=== PATIENT | male | born 1955 | race African-American/Black ===

== ENCOUNTER → 2019-10-22 | Outpatient (CLI) | payer MEDICAID ==
[~2019-10-22] MED LIST: ASPI-1497 MT; LISI-604 PO; OMEP40CA12 PO; QUET200T MT; SIMV-46 PO
== END | disposition home or self-care (01) ==
LOC: LAB 09:33
PROVIDERS: ATTEND Neurological Surgery
DX: Z01.818 Encounter for other preprocedural examination (principal); Z11.59 Encounter for screening for other viral diseases
CPT/HCPCS: C9803; U0003

== ENCOUNTER 2019-10-25 06:53 | Inpatient (IN) | payer MEDICAID ==
[2019-10-25] VITALS (55 sets, daily range): BP systolic 82–158; BP diastolic 39–85
[~2019-10-25] VITALS: Ht 165.1 cm; Wt 106.1 kg
[~2019-10-25 06:53] MED LIST changes: +LACTATED RINGERS 1,000 ML IV SCH
[2019-10-25] MEDS ORDERED: HYDRALAZINE 20MG/ML VIAL IV PRN (09:15)
[2019-10-25] MEDS ORDERED: MORPHINE SULFATE 4 MG/ML CPJ (NOT FOR IM USE) IV PRN (09:15)
[2019-10-25] MEDS ORDERED: LIDOCAINE HCL/EPINEPHRINE 1%-EPI 1:100,000 20 ML VIAL ONE (09:40)
[2019-10-25] MEDS ORDERED: THROMBIN (BOVINE) 5000 UNITS/VIAL TOP ONE (09:40)
[2019-10-25] MEDS ORDERED: BACITRACIN 50,000 UNITS/VIAL ONE (09:41)
[2019-10-25] MEDS ORDERED: ROCURONIUM BROMIDE 10MG/ML VIAL 5ML IV ONE (10:08)
[2019-10-25] MEDS ORDERED: GLYCOPYRROLATE 0.2 MG/ML 2ML VIAL ONE (10:12)
[2019-10-25] MEDS ORDERED: HYDROMORPHONE HCL/PF 2MG/ML (OR) ONE (10:26)
[2019-10-25] MEDS ORDERED: LABETALOL HCL 5MG/ML VIAL 20ML IV ONE (12:07)
[2019-10-25] MEDS ORDERED: NALOXONE INJ IV PRN (12:30)
[2019-10-25] MEDS: HYDROMORPHONE PCA 10MG/50ML IV PRN (13:07)
[2019-10-25] MEDS: DEXT 5%/LACTATED RINGERS 1,000 ML IV SCH (13:08)
[2019-10-25] MEDS: CEFAZOLIN 1000MG PREMIX 50 ML IV SCH ×2 (13:49→21:33)
[2019-10-25] MEDS ORDERED: CEFAZOLIN SODIUM 1000MG/VIAL IV SCH (14:00)
[2019-10-25] MEDS: NICARDIPINE 100 MG in SODIUM CHLORIDE 0.9% 60 ML IV PRN (15:52)
[2019-10-25] MEDS: DIPHENHYDRAMINE INJ IV PRN ×2 (17:01→21:33)
[2019-10-25] MEDS: ONDANSETRON INJ IV PRN (20:10)
[2019-10-25] MEDS: QUETIAPINE FUMARATE 50MG TABLET PO SCH (21:33)
[2019-10-26] VITALS (80 sets, daily range): BP systolic 72–165; BP diastolic -24–128
[2019-10-26] MEDS: DEXT 5%/LACTATED RINGERS 1,000 ML IV SCH ×2 (01:38→15:31)
[2019-10-26] MEDS: ONDANSETRON INJ IV PRN (01:38)
[2019-10-26] MEDS: DIPHENHYDRAMINE INJ IV PRN ×3 (03:03→21:18)
[2019-10-26] MEDS: HYDROMORPHONE PCA 10MG/50ML IV PRN ×2 (03:44→17:22)
[2019-10-26] MEDS: NICARDIPINE 100 MG in SODIUM CHLORIDE 0.9% 60 ML IV PRN (05:00)
[2019-10-26 05:24] LABS: BASOPHILS % 0.3 % (0.0-2.0); EOSINOPHILS % 0.2 % (0.0-5.0); HEMATOCRIT. 28.1 % (42.0-52.0); HEMOGLOBIN. 9.8 g/dL (14.0-18.0); LYMPHOCYTES % 21.8 % (20.0-50.0); MEAN CORPUSCULAR HEMOGLOBIN 30.5 pg (28.0-32.0); MEAN CORPUSCULAR VOLUME 87.7 fL (80.0-94.0); MEAN PLATELET VOLUME 9.1 fl (7.4-10.4); MONOCYTES % 7.3 % (2.0-8.0); NEUTROPHILS % 70.4 % (40.0-76.0); PLATELET 171 x1000/uL (130-400); RED BLOOD CELL COUNT 3.21 mill/uL (4.7-6.1); RED CELL DISTRIBUTION WIDTH 14.5 % (11.6-14.6)
[2019-10-26 05:30] LABS: CHLORIDE 109 mEq/L (98-107)
[2019-10-26] MEDS: CEFAZOLIN 1000MG PREMIX 50 ML IV SCH ×2 (07:04→15:31)
[2019-10-26] MEDS: OXYCODONE HCL/ACETAMINOPHEN 5/325MG TABLET PO PRN (08:30)
[2019-10-26] MEDS: QUETIAPINE FUMARATE 50MG TABLET PO SCH (21:01)
[2019-10-27] VITALS: BP 137/56
[2019-10-27 04:00] VITALS: BP 137/57
[2019-10-27] MEDS: DIPHENHYDRAMINE INJ IV PRN ×2 (04:36→20:33)
[2019-10-27 06:55] LABS: CHLORIDE 110 mEq/L (98-107)
[2019-10-27 07:34] LABS: BASOPHILS % 0.6 % (0.0-2.0); EOSINOPHILS % 0.7 % (0.0-5.0); HEMATOCRIT. 29.4 % (42.0-52.0); HEMOGLOBIN. 10.2 g/dL (14.0-18.0); LYMPHOCYTES % 21.1 % (20.0-50.0); MEAN CORPUSCULAR HEMOGLOBIN 30.3 pg (28.0-32.0); MEAN CORPUSCULAR VOLUME 87.3 fL (80.0-94.0); MONOCYTES % 6.9 % (2.0-8.0); NEUTROPHILS % 70.7 % (40.0-76.0); PLATELET 175 x1000/uL (130-400); RED BLOOD CELL COUNT 3.37 mill/uL (4.7-6.1); RED CELL DISTRIBUTION WIDTH 14.6 % (11.6-14.6)
[2019-10-27 07:47] VITALS: BP 148/63
[2019-10-27] MEDS: ONDANSETRON INJ IV PRN (08:13)
[2019-10-27 11:57] VITALS: BP 148/73
[2019-10-27] MEDS: OXYCODONE HCL/ACETAMINOPHEN 5/325MG TABLET PO PRN (12:30)
[2019-10-27] MEDS: HYDROMORPHONE HCL/PF 2MG/ML CPJ IV PRN ×3 (17:17→23:15)
[2019-10-27] MEDS: DEXT 5%/LACTATED RINGERS 1,000 ML IV SCH ×2 (17:22→17:50)
[2019-10-27 20:00] VITALS: BP 114/76
[2019-10-27] MEDS: QUETIAPINE FUMARATE 50MG TABLET PO SCH (20:33)
[2019-10-28] VITALS: BP 152/69
[2019-10-28 04:00] VITALS: BP 157/74
[2019-10-28] MEDS: HYDROMORPHONE HCL/PF 2MG/ML CPJ IV PRN ×4 (04:27→21:55)
[2019-10-28] MEDS: DEXT 5%/LACTATED RINGERS 1,000 ML IV SCH (04:44)
[2019-10-28] MEDS: DIPHENHYDRAMINE INJ IV PRN (04:50)
[2019-10-28 06:03] LABS: BASOPHILS % 0.4 % (0.0-2.0); EOSINOPHILS % 1.3 % (0.0-5.0); HEMATOCRIT. 28.2 % (42.0-52.0); HEMOGLOBIN. 9.8 g/dL (14.0-18.0); LYMPHOCYTES % 27.4 % (20.0-50.0); MEAN CORPUSCULAR HEMOGLOBIN 30.6 pg (28.0-32.0); MEAN CORPUSCULAR VOLUME 88.3 fL (80.0-94.0); MEAN PLATELET VOLUME 9.3 fl (7.4-10.4); MONOCYTES % 11.4 % (2.0-8.0); NEUTROPHILS % 59.5 % (40.0-76.0); PLATELET 165 x1000/uL (130-400); RED CELL DISTRIBUTION WIDTH 14.7 % (11.6-14.6)
[2019-10-28 06:12] LABS: CHLORIDE 110 mEq/L (98-107)
[2019-10-28 07:53] VITALS: BP 163/79
[2019-10-28] MEDS: OXYCODONE HCL/ACETAMINOPHEN 5/325MG TABLET PO PRN ×2 (08:41→20:30)
[2019-10-28 11:44] VITALS: BP 173/88
[2019-10-28] MEDS: OMEPRAZOLE 20MG CAPSULE EXTENDED RELEASE PO SCH (12:48)
[2019-10-28] MEDS: ACETAMINOPHEN 325MG TABLET PO PRN (12:49)
[2019-10-28] MEDS: LISINOPRIL 20MG TABLET PO SCH (12:49)
[2019-10-28] MEDS: CEFTRIAXONE 1 G PREMIX 50 ML IV SCH (15:32)
[2019-10-28 16:00] VITALS: BP 156/75
[2019-10-28 20:00] VITALS: BP_SYST 103; BP_SYST 145; BP_DIAS 68; BP_DIAS 69
[2019-10-28] MEDS: QUETIAPINE FUMARATE 50MG TABLET PO SCH (20:29)
[2019-10-29] VITALS: BP 133/77
[2019-10-29] MEDS: HYDROMORPHONE HCL/PF 2MG/ML CPJ IV PRN ×4 (03:42→21:28)
[2019-10-29 04:00] VITALS: BP 179/84
[2019-10-29] MEDS: DEXT 5%/LACTATED RINGERS 1,000 ML IV SCH ×2 (04:02→09:40)
[2019-10-29] MEDS: DIPHENHYDRAMINE INJ IV PRN ×3 (04:09→21:28)
[2019-10-29] MEDS: OMEPRAZOLE 20MG CAPSULE EXTENDED RELEASE PO SCH (06:21)
[2019-10-29 08:00] VITALS: BP 161/79
[2019-10-29] MEDS: LISINOPRIL 20MG TABLET PO SCH (08:25)
[2019-10-29 12:00] VITALS: BP 169/84
[2019-10-29] MEDS: CEFTRIAXONE 1 G PREMIX 50 ML IV SCH (15:36)
[2019-10-29 16:00] VITALS: BP 157/83
[2019-10-29] MEDS: OXYCODONE HCL/ACETAMINOPHEN 5/325MG TABLET PO PRN (16:34)
[2019-10-29] MEDS: ACETAMINOPHEN 325MG TABLET PO PRN (17:45)
[2019-10-29 20:00] VITALS: BP 122/71
[2019-10-29] MEDS: QUETIAPINE FUMARATE 50MG TABLET PO SCH (21:55)
[2019-10-30] VITALS: BP 140/77
[2019-10-30] MEDS: DEXT 5%/LACTATED RINGERS 1,000 ML IV SCH ×2 (01:04→13:06)
[2019-10-30] MEDS: HYDROMORPHONE HCL/PF 2MG/ML CPJ IV PRN ×4 (03:15→23:37)
[2019-10-30] MEDS: DIPHENHYDRAMINE INJ IV PRN (03:21)
[2019-10-30 04:00] VITALS: BP 144/78
[2019-10-30 08:00] VITALS: BP 161/78
[2019-10-30] MEDS ORDERED: DEXAMETHASONE 4MG/ML 1ML VIAL IV PRN (08:15)
[2019-10-30] MEDS: DEXAMETHASONE 4MG/ML 1ML VIAL IV SCH ×3 (08:44→21:13)
[2019-10-30] MEDS: LISINOPRIL 20MG TABLET PO SCH (09:50)
[2019-10-30] MEDS: FAMOTIDINE 20MG TABLET PO SCH ×2 (09:50→18:19)
[2019-10-30 12:00] VITALS: BP 166/87
[2019-10-30 16:00] VITALS: BP 142/84
[2019-10-30] MEDS: CEFTRIAXONE 1 G PREMIX 50 ML IV SCH (16:04)
[2019-10-30 20:00] VITALS: BP 150/65
[2019-10-30] MEDS ORDERED: DIPHENHYDRAMINE 50MG/ML VIAL IV PRN (21:30)
[2019-10-30] MEDS: QUETIAPINE FUMARATE 50MG TABLET PO SCH (21:35)
[2019-10-31] VITALS: BP 157/63
[2019-10-31] MEDS: DEXT 5%/LACTATED RINGERS 1,000 ML IV SCH ×2 (01:50→14:12)
[2019-10-31] MEDS: HYDROMORPHONE HCL/PF 2MG/ML CPJ IV PRN ×3 (02:36→10:09)
[2019-10-31 04:00] VITALS: BP 143/77
[2019-10-31 08:11] VITALS: BP 180/86
[2019-10-31] MEDS: FAMOTIDINE 40MG TABLET PO SCH ×2 (08:13→21:28)
[2019-10-31] MEDS: LISINOPRIL 20MG TABLET PO SCH (08:13)
[2019-10-31 12:00] VITALS: BP 147/84
[2019-10-31] MEDS: CEFTRIAXONE 1 G PREMIX 50 ML IV SCH (14:14)
[2019-10-31 16:00] VITALS: BP 163/70
[2019-10-31 20:00] VITALS: BP 150/66
[2019-10-31] MEDS: QUETIAPINE FUMARATE 50MG TABLET PO SCH (21:28)
[2019-10-31] MEDS ORDERED: CLONIDINE 0.2MG TABLET PO PRN (22:43)
[2019-11-01] VITALS: BP 158/82
[2019-11-01] MEDS: OXYCODONE HCL/ACETAMINOPHEN 5/325MG TABLET PO PRN ×5 (00:47→20:46)
[2019-11-01] MEDS ORDERED: DIPHENHYDRAMINE 25MG CAPSULE PO PRN (02:45)
[2019-11-01 04:00] VITALS: BP 176/84
[2019-11-01 08:00] VITALS: BP 154/80
[2019-11-01] MEDS: FAMOTIDINE 40MG TABLET PO SCH ×2 (09:37→22:37)
[2019-11-01] MEDS: LISINOPRIL 20MG TABLET PO SCH (09:37)
[2019-11-01] MEDS: HYDROMORPHONE HCL/PF 2MG/ML CPJ IV PRN ×4 (09:38→21:01)
[2019-11-01] MEDS: AMLODIPINE 10MG TABLET PO SCH (10:57)
[2019-11-01] MEDS ORDERED: QUET400T MT (11:37)
[2019-11-01 11:57] VITALS: BP 133/89
[2019-11-01] MEDS ORDERED: QUETIAPINE FUMARATE 50MG TABLET PO PRN (12:15)
[2019-11-01] MEDS: CEFTRIAXONE 1 G PREMIX 50 ML IV SCH (15:08)
[2019-11-01 16:00] VITALS: BP 147/66
[2019-11-01] MEDS ORDERED: LACTULOSE 20G/30ML UDC PO NR (17:15)
[2019-11-01] MEDS ORDERED: DIPHENHYDRAMINE 50MG/ML VIAL IV PRN (17:15)
[2019-11-01] MEDS: DEXT 5%/LACTATED RINGERS 1,000 ML IV SCH (17:24)
[2019-11-01 20:00] VITALS: BP 120/54
[2019-11-01] MEDS ORDERED: QUETIAPINE FUMARATE 50MG TABLET PO SCH (21:00)
[2019-11-02] VITALS: BP 181/136
[2019-11-02] MEDS: HYDROMORPHONE HCL/PF 2MG/ML CPJ IV PRN ×4 (00:32→12:09)
[2019-11-02 04:00] VITALS: BP 146/66
[2019-11-02] MEDS: OXYCODONE HCL/ACETAMINOPHEN 5/325MG TABLET PO PRN (05:34)
[2019-11-02 06:33] LABS: BASOPHILS % 0.8 % (0.0-2.0); EOSINOPHILS % 3.8 % (0.0-5.0); HEMATOCRIT. 27.1 % (42.0-52.0); HEMOGLOBIN. 9.3 g/dL (14.0-18.0); LYMPHOCYTES % 40.6 % (20.0-50.0); MEAN CORPUSCULAR HEMOGLOBIN 30.3 pg (28.0-32.0); MEAN CORPUSCULAR VOLUME 87.8 fL (80.0-94.0); MEAN PLATELET VOLUME 8.9 fl (7.4-10.4); MONOCYTES % 10.2 % (2.0-8.0); NEUTROPHILS % 44.6 % (40.0-76.0); PLATELET 232 x1000/uL (130-400); RED BLOOD CELL COUNT 3.09 mill/uL (4.7-6.1); RED CELL DISTRIBUTION WIDTH 14.5 % (11.6-14.6)
[2019-11-02 06:43] LABS: CHLORIDE 106 mEq/L (98-107)
[2019-11-02] MEDS: DEXT 5%/LACTATED RINGERS 1,000 ML IV SCH (07:41)
[2019-11-02 07:52] VITALS: BP 146/90
[2019-11-02] MEDS: AMLODIPINE 10MG TABLET PO SCH (08:22)
[2019-11-02] MEDS: LISINOPRIL 20MG TABLET PO SCH (08:22)
[2019-11-02] MEDS ORDERED: FAMOTIDINE 10MG TABLET PO SCH (09:00)
[2019-11-02 12:00] VITALS: BP 155/74
[2019-11-02] MEDS ORDERED: HYDR-3280 MT (15:01)
[2019-11-02 15:22] VITALS: BP 155/82
[2019-11-02] MEDS: CEFTRIAXONE 1 G PREMIX 50 ML IV SCH (15:31)
== END 2019-11-02 16:50 | disposition home health service (06) | DRG 320 ==
LOC: OR 06:53 → MICUNO 06:54 → 8WST 10-26 22:58
PROVIDERS: ADMIT Neurological Surgery; ATTEND Neurological Surgery
PROC: 01NB0ZZ Release Lumbar Nerve, Open Approach (ICD-10-PCS; principal; 2019-10-25)
DX: M71.38 Other bursal cyst, other site (principal); M47.16 Other spondylosis with myelopathy, lumbar region; M51.37 Other intervertebral disc degeneration, lumbosacral region; G82.50 Quadriplegia, unspecified; M51.06 Intervertebral disc disorders with myelopathy, lumbar region; E11.9 Type 2 diabetes mellitus without complications; I10 Essential (primary) hypertension; F31.9 Bipolar disorder, unspecified; G89.29 Other chronic pain; N48.30 Priapism, unspecified; R26.89 Other abnormalities of gait and mobility; R26.9 Unspecified abnormalities of gait and mobility; Z68.38 Body mass index [BMI] 38.0-38.9, adult
CPT/HCPCS: 36415; 71045; 72100; 72148; 73502; 76000; 80048; 85025; 86850; 86900; 88304; 88311; 95863; 95925; 95926; 95928; 95929; 95940; 97116; 97162; 97167; 97530; J0360; J0690; J0696; J1100; J1170; J1200; J2270; J2405; J3490; J7050; J7121; Q0163

== ENCOUNTER 2021-11-09 13:22 | Emergency (ER) | payer MEDICAID, OTHER ==
[~2021-11-09] VITALS: Ht 165.1 cm; Wt 82.0 kg
[~2021-11-09 13:22] MED LIST changes: +HYDR-4350 MT; -LACTATED RINGERS 1,000 ML IV SCH; -LISI-604 PO; +LISI20TA31 PO; -OMEP40CA12 PO; +OMEP40CA20 PO; +QUET400T MT; +SACU1TAB PO
[2021-11-09] MEDS ORDERED: KETOROLAC 60MG/2ML VIAL IM ONE (15:00)
[2021-11-09 15:28] VITALS: BP 166/94
== END 2021-11-09 15:29 | disposition home or self-care (01) ==
LOC: ER 13:22
DX: M79.89 Other specified soft tissue disorders (principal); D64.9 Anemia, unspecified; E11.9 Type 2 diabetes mellitus without complications; E78.00 Pure hypercholesterolemia, unspecified; I10 Essential (primary) hypertension; Z79.899 Other long term (current) drug therapy
CPT/HCPCS: 93970; 96372; 99284; J1885

== ENCOUNTER 2021-11-25 11:35 | Emergency (ER) | payer OTHER ==
[~2021-11-25] VITALS: Ht 165.1 cm; Wt 83.0 kg
[2021-11-25] MEDS ORDERED: TETANUS, DIPHTHERIA, PERTUSSIS VAC/PF 0.5ML (>10YR OLD) IM ONE (12:15)
[2021-11-25] MEDS ORDERED: CEPHALEXIN 250MG CAPSULE PO ONE (12:15)
[2021-11-25] MEDS ORDERED: BACITRACIN ZINC OINT UDPKT TOP ONE (12:15)
[2021-11-25] MEDS ORDERED: ACETAMINOPHEN 325MG TABLET PO ONE (12:15)
[2021-11-25] MEDS ORDERED: [UNRECOGNIZED DRUG - CODE] TP (12:17)
[2021-11-25] MEDS ORDERED: BO1 TP (12:17)
[2021-11-25] MEDS ORDERED: CEPH500C2 MT (12:17)
[2021-11-25 12:55] VITALS: BP 128/65
== END 2021-11-25 12:57 | disposition home or self-care (01) ==
LOC: ER 11:35
DX: S91.134A Puncture wound without foreign body of right lesser toe(s) without damage to nail, initial encounter (principal); X58.XXXA Exposure to other specified factors, initial encounter; Y93.89 Activity, other specified; Y92.89 Other specified places as the place of occurrence of the external cause; Y99.8 Other external cause status; D64.9 Anemia, unspecified; E11.9 Type 2 diabetes mellitus without complications; E78.00 Pure hypercholesterolemia, unspecified; I10 Essential (primary) hypertension; Z79.899 Other long term (current) drug therapy
CPT/HCPCS: 90471; 90715; 99284

== ENCOUNTER 2022-03-01 10:42 | Emergency (ER) | payer MEDICAID, OTHER ==
[~2022-03-01] VITALS: Ht 172.7 cm; Wt 91.0 kg
[~2022-03-01 10:42] MED LIST changes: +BO1 TP; +CEPH500C2 MT; +[UNRECOGNIZED DRUG - CODE] TP
[2022-03-01] MEDS ORDERED: ONDANSETRON HCL 4MG/2ML INJ IV STA ×2 (13:09→16:41)
[2022-03-01] MEDS ORDERED: MORPHINE SULFATE 4 MG/ML CPJ (NOT FOR IM USE) IV STA ×2 (13:09→16:41)
[2022-03-01] MEDS ORDERED: SODIUM CHLORIDE 0.9% 1,000 ML IV ONE (13:15)
[2022-03-01 14:45] LABS: BASOPHILS % 0.4 % (0.0-2.0); EOSINOPHILS % 2.1 % (0.0-5.0); HEMATOCRIT. 32.4 % (42.0-52.0); LYMPHOCYTES % 23.1 % (20.0-50.0); MEAN CORPUSCULAR HEMOGLOBIN 29.8 pg (28.0-32.0); MEAN CORPUSCULAR VOLUME 87.5 fL (80.0-94.0); MEAN PLATELET VOLUME 9.9 fl (7.4-10.4); NEUTROPHILS % 69.4 % (40.0-76.0); PLATELET 230 x1000/uL (130-400); RED CELL DISTRIBUTION WIDTH 14.8 % (11.6-14.6)
[2022-03-01 14:53] LABS: INR 0.9; PARTIAL THROMBOPLASTIN TIME 27.2 sec (23.4-31.0); PROTHROMBIN TIME 9.9 sec (9.6-11.0)
[2022-03-01 14:54] LABS: CHLORIDE 107 mEq/L (98-107)
[2022-03-01 17:35] VITALS: BP 162/91
== END 2022-03-01 17:38 | disposition short-term general hospital (02) ==
LOC: ER 10:42
DX: M25.551 Pain in right hip (principal); E11.9 Type 2 diabetes mellitus without complications; E78.00 Pure hypercholesterolemia, unspecified; I10 Essential (primary) hypertension; Z79.899 Other long term (current) drug therapy; Z98.890 Other specified postprocedural states; Z79.82 Long term (current) use of aspirin; W18.30XA Fall on same level, unspecified, initial encounter; Y93.89 Activity, other specified; Y92.89 Other specified places as the place of occurrence of the external cause; Y99.8 Other external cause status
CPT/HCPCS: 36415; 71045; 72192; 73502; 73552; 80053; 84484; 85025; 85610; 85730; 86850; 86900; 86901; 93005; 96361; 96374; 96375; 96376; 99285; J2270; J2405; J7030

== ENCOUNTER 2023-01-17 16:53 | Emergency (ER) | payer MEDICARE, MEDICAID ==
[~2023-01-17] VITALS: Ht 165.1 cm; Wt 82.0 kg
[2023-01-17 17:09] VITALS: TEMP 98.7; O2SAT 99
[2023-01-17] MEDS ORDERED: OXYCODONE HCL/ACETAMINOPHEN 5/325MG TABLET PO ONE (18:00)
[2023-01-17 18:18] LABS: BASOPHILS % 0.6 % (0.0-2.0); EOSINOPHILS % 3.1 % (0.0-5.0); HEMOGLOBIN. 10.3 g/dL (14.0-18.0); LYMPHOCYTES % 26.1 % (20.0-50.0); MEAN CORPUSCULAR HEMOGLOBIN 28.5 pg (28.0-32.0); MEAN CORPUSCULAR HGB CONC 33.2 g/dL (31.0-37.0); MEAN PLATELET VOLUME 8.7 fl (7.4-10.4); MONOCYTES % 7.4 % (2.0-8.0); NEUTROPHILS % 62.8 % (40.0-76.0); PLATELET 247 x1000/uL (130-400); RED BLOOD CELL COUNT 3.61 mill/uL (4.7-6.1)
[2023-01-17 18:28] LABS: CHLORIDE 108 mEq/L (98-107); INDEX HEMOLYSI 1 (1-3); INDEX ICTERIC 1 (1-4); INDEX LIPEMIC 1 (1-3); POTASSIUM 4.7 mEq/L (3.5-5.1); SODIUM 136 mEq/L (136-145)
[2023-01-17 18:35] LABS: ALANINE AMINOTRANSFERASE 11 IU/L (13-61); ALBUMIN 3.5 g/dL (3.4-5.0); ASPARTATE AMINOTRANSFERASE 9 IU/L (15-37); BILIRUBIN TOTAL 0.3 mg/dL (0.1-1.0); CALCIUM 9.6 mg/dL (8.5-10.1); CARBON DIOXIDE 26 mEq/L (21-32); CREATININE 2.4 mg/dL (0.6-1.3); GLUCOSE 136 mg/dL (70-105); PROTEIN TOTAL 7.6 g/dL (6.0-8.3); UREA NITROGEN BLOOD 23 mg/dL (7-21)
[2023-01-17 19:58] LABS: CLARITY URINE CLEAR (CLEAR); COLOR URINE YELLOW (YELLOW); GLUCOSE URINE NEGATIVE (NEGATIVE); KETONES URINE NEGATIVE (NEGATIVE); LEUKOCYTE ESTERASE URINE NEGATIVE (NEGATIVE); NITRITE URINE NEGATIVE (NEGATIVE); OCCULT BLOOD URINE NEGATIVE (NEGATIVE); PROTEIN URINE 2+ (NEGATIVE); SPECIFIC GRAVITY URINE 1.014 (1.005-1.030)
[2023-01-17 20:01] LABS: BACTERIA URINE NONE SEEN; RBC URINE NONE SEEN /hpf (0-2); YEAST URINE NONE SEEN
[2023-01-17] MEDS ORDERED: OXYC-100 MT ×2 (20:04→20:33)
[2023-01-17] MEDS ORDERED: NALO4SPR BOTHNSTRLS (20:06)
[2023-01-17] MEDS ORDERED: MORPHINE SULFATE 4 MG/ML CPJ (NOT FOR IM USE) IV ONE (20:15)
[2023-01-17 20:17] LABS: SQUAMOUS EPITHELIAL CELL URINE RARE /lpf (RARE/1+); WBC URINE 0-2 /hpf (0-2)
[2023-01-17 21:09] VITALS: BP 152/74; PULSE 102; RESP 20
[2023-01-17] MEDS ORDERED: CYCL10TA21 PO (23:36)
[2023-01-17] MEDS ORDERED: FURO40TA5 PO (23:36)
[2023-01-17] MEDS ORDERED: CLON0.1T PO (23:36)
[2023-01-17] MEDS ORDERED: IBUP-2030 PO (23:36)
[2023-01-17] MEDS ORDERED: SIMV-46 PO (23:36)
[2023-01-17] MEDS ORDERED: BUPR-315 PO (23:39)
[2023-01-17] MEDS ORDERED: METF-416 PO (23:39)
[2023-01-17] MEDS ORDERED: OMEP20CA14 PO (23:39)
[2023-01-17] MEDS ORDERED: QUET200T30 PO (23:39)
[2023-01-17] MEDS ORDERED: METO-396 PO (23:39)
[2023-01-17] MEDS ORDERED: GABA-290 PO (23:39)
== END 2023-01-17 21:12 | disposition home or self-care (01) ==
LOC: ER 16:53
DX: M25.562 Pain in left knee (principal); D64.9 Anemia, unspecified; E11.9 Type 2 diabetes mellitus without complications; E78.00 Pure hypercholesterolemia, unspecified; I10 Essential (primary) hypertension; Z79.899 Other long term (current) drug therapy
CPT/HCPCS: 99283; 96374; 80053; 81003; 82962; 85025; 85730; 36415; J2270

== ENCOUNTER 2024-03-13 13:53 | Emergency (ER) | payer MEDICARE, MEDICAID ==
[~2024-03-13 13:53] MED LIST changes: -ASPI-1497 MT; -BO1 TP; +CARV25TA47 PO; -CEPH500C2 MT; +CYCL10TA21 PO; +GABA-290 PO; -HYDR-4350 MT; -LISI20TA31 PO; -OMEP40CA20 PO; -QUET200T MT; +QUET200T30 PO; -QUET400T MT; -SACU1TAB PO; -SIMV-46 PO; -[UNRECOGNIZED DRUG - CODE] TP
[2024-03-13 13:54] VITALS: PULSE 84; O2SAT 97
== END 2024-03-13 14:13 | disposition left against medical advice (07) ==
LOC: ER 13:53
DX: M79.673 Pain in unspecified foot (principal); Z53.21 Procedure and treatment not carried out due to patient leaving prior to being seen by health care provider